=== PATIENT | male | born 1985 | race Caucasian/White ===

== ENCOUNTER 2020-04-12 19:35 | Emergency (ER) | payer BC ==
[2020-04-12 19:51] VITALS: BP 131/89
[2020-04-12] MEDS ORDERED: DIPH/PERTUSS(ACELL)/TETANUS VAC/PF 0.5 ML SYR (>=10YO) IM ONE (20:44)
[2020-04-12] MEDS ORDERED: HYDROCODONE/ACETAMINOPHEN 5-325 MG TABLET PO ONE (20:44)
--- NOTE | 2020-04-12 20:44 | ER Document Report ---
HPI - HPI Patient complains to provider of: Stingray sting Time Seen by Provider: 04/12/20 20:40 Notes: 34-year-old male to the emergency department with complaints of a puncture wound to his left hand that occurred just prior to arrival. He states he was fishing when he caught a stingray and this stingray tail puncture him. He applied heat and it is very painful. He is unsure of his tetanus shot. He is right-hand dominant - ROS Systems Reviewed and Negative: Yes All other systems reviewed and negative - CONSTITUTIONAL Constitutional: DENIES: Chills - EENT EENT: DENIES: Sore Throat, Ear Pain, Congestion - NEURO Neurology: DENIES: Headache - CARDIOVASCULAR Cardiovascular: DENIES: Chest pain - RESPIRATORY Respiratory: DENIES: Trouble Breathing, Coughing - GASTROINTESTINAL Gastrointestinal: DENIES: Abdominal Pain, Nausea, Patient vomiting, Diarrhea - MUSCULOSKELETAL Musculoskeletal: REPORTS: Extremity pain Notes: See HPI, stingray sting to the left hand - DERM Skin Color: Normal Skin Problems: Puncture Wound - Stingray puncture wound to the left hand Past Medical History - General Information source: Patient - Social History Smoking Status: Never Smoker Frequency of alcohol use: Social Drug Abuse: None Family History: Reviewed & Not Pertinent Vertical Provider Document - CONSTITUTIONAL Exam Limitations: No Limitations General Appearance: WD/WN - HEENT HEENT: Atraumatic, Normocephalic, PERRLA - NECK Neck: Normal Inspection, Supple - RESPIRATORY Respiratory: Breath Sounds Normal, No Respiratory Distress. negative: Rales, Rhonchi, Wheezing - CARDIOVASCULAR Cardiovascular: Regular Rate, Regular Rhythm, No Murmur - GI/ABDOMEN Gastrointestinal: Abdomen Soft, Abdomen Non-Tender - MUSCULOSKELETAL/EXTREMETIES Musculoskeletal/Extremeties: MILLIE COPELAND - NEURO Level of Consciousness: Awake, Alert, Appropriate - DERM Integumentary: Warm - There is a puncture wound to the left hand on the palmar surface. Bleeding is controlled. There is erythema around the site. Patient still has 5 out of 5 handgrip. Full range of motion of all fingers against resistance. Cap refill is less than 2 seconds. Radial pulses intact and equal. Course - Re-evaluation Re-evalutation: Pression: Stingray puncture wound. Updated tetanus. X-ray with no retained foreign body. Will start on doxycycline given Marine etiology of the sting. Patient agrees with the plan. Encouraged to return if any worsening symptoms. Discharge home - Vital Signs Vital signs: Temp Pulse Resp BP Pulse Ox 97.6 F 76 16 131/89 H 100 04/12/20 19:49 04/12/20 19:49 04/12/20 19:49 04/12/20 19:49 04/12/20 19:49 - Diagnostic Test Radiology reviewed: Image reviewed, Reports reviewed Discharge - Discharge Clinical Impression: Contact with stingray as cause of accidental injury, Hand pain, left Puncture wound, hand Qualifiers: Encounter type: initial encounter Foreign body presence: without foreign body Laterality: left Qualified Code(s): S61.432A - Puncture wound without foreign body of left hand, initial encounter Condition: Stable Disposition: HOME, SELF-CARE Instructions: Puncture Wound ([facility]) Additional Instructions: Keep wound clean and dry. Take all antibiotics until completed. Return if any worsening pain, redness, fever, purulent drainage from the site. Wash the site daily with warm soapy water. May continue to apply warm compresses. Prescriptions: Doxycycline Hyclate [Morgidox] 100 mg PO BID #20 capsule Hydrocodone/Acetaminophen [[place] 5-325 mg Tablet] 1 tab PO Q6H #12 tablet Referrals: [facility] [Outside] - Follow up in 1 week
--- NOTE | 2020-04-12 21:26 | RADIOLOGY REPORT (SQ) ---
3 VIEWS LEFT HAND HISTORY: Stingray sting, evaluate for foreign body. COMPARISON: None. FINDINGS: No acute fracture or dislocation is seen. The joint spaces are preserved. The soft tissues are swollen but without foreign body seen. IMPRESSION: No foreign body.
== END 2020-04-12 22:35 | disposition home or self-care (01) ==
LOC: ER 19:35
DX: T63.511A Toxic effect of contact with stingray, accidental (unintentional), initial encounter (principal); S61.432A Puncture wound without foreign body of left hand, initial encounter; Y93.19 Activity, other involving water and watercraft; Z23 Encounter for immunization
CPT/HCPCS: 90715; 96372; 99283